=== PATIENT | male | born 1965 | race Caucasian/White ===

== ENCOUNTER 2017-07-12 08:01 | Day surgery (SDC) | payer OTHER ==
[2017-07-12] MEDS ORDERED: NS 1,000 ML IV ONE (08:09)
[2017-07-12] MEDS ORDERED: ATROPINE SULFATE 1 MG/10 ML SYR IVP ONE (08:09)
--- NOTE | 2017-07-12 08:26 | CPEKG ---
Heart Rate: 83 RR Interval: 723 P-R Interval: 196 QRSD Interval: 84 QT Interval: 364 QTC Interval: 428 P [place]: 63 QRS [place]: 27 T Wave [place]: 47 EKG Severity - OTHERWISE NORMAL ECG - EKG Impression: SINUS RHYTHM EKG Impression: LOW VOLTAGE IN FRONTAL LEADS Electronically Signed By: Puneet García 12-Jul-2017 15:09:16
--- NOTE | 2017-07-12 09:02 | GHP ---
[f rep st] HISTORY AND PHYSICAL DATE OF ADMISSION: 07/12/2017 CHIEF COMPLAINT: Palpitations and shortness of breath. HISTORY OF PRESENT ILLNESS: The patient is a 51-year-old male, who is known to our practice. He has significant past history of paroxysmal atrial fibrillation with rapid ventricular response. He has been noted to have, over the last 15 years, 4 episodes of atrial fibrillation requiring cardioversion . He reports last evening around 5, 5:30 p.m., he developed a sudden palpitation in his chest with a ssociated symptoms of shortness of breath, mild lightheadedness. Patient is a cardiac laborer laboratory nurse . He did an electrocardiogram on himself and ran a strip showing atrial fibrillation with rapid vent ricular response, heart rates varying between 130 and 160. He tried vagal maneuvers which, in the pa st, has helped convert him. Unfortunately, this did not work. Due to this, he did call our office w ith concerns regarding his new symptoms. He did try taking an extra dose of his diltiazem which he r eports helped control the rate down to the 120s to 130s at rest, but any time he exerts himself, he c an find his heart rate being up to 150. He denies any chest pain, lightheadedness, orthopnea, PND, e marito, near-syncope, or syncopal events. Does report palpitations but denies any chest pressure or pa in. Reports no recent fevers, chills, or night sweats. He does report he has been compliant with la s medications. Denies any history of bleeding issues and, besides yesterday, reports he has been in his normal state of health. He has cardiac risk factors of borderline hyperlipidemia and effects. PAST MEDICAL HISTORY: Paroxysmal atrial fibrillation, reporting over the last 15 years of having 4 c ardioversions, most recent was 2 years ago. He reports he is unable to break AFib without cardiovers ion. PAST SURGICAL HISTORY: Tonsillectomy. FAMILY HISTORY: Patient reports no significant family history of coronary artery disease at early on set but does report both father and sister have history of atrial arrhythmias in the past. SOCIAL HISTORY: Patient is a cardiac laborer laboratory nurse. He is , he has no children. He has 1-2 alcoholic beverages a week. Denies any tobacco use. Denies any illicit drug use. Reports caffeine on a daily basis. ALLERGIES: Patient has no known drug allergies. MEDICATIONS: At home include: 1. Cardizem CD 120 mg p.o. q. day. 2. Aspirin 325 mg p.o. q. day. 3. Vitamin D 5000 units p.o. daily. 4. Glucosamine daily, uncertain of dosage. 5. Flonase p.r.n. 2-3 times a month. REVIEW OF SYSTEMS: A 10-point review of systems on this patient all negative except as mentioned abo ve. PHYSICAL EXAMINATION: GENERAL APPEARANCE: Tall, well-groomed, male. He is alert and orie nted to person, place, time, and situation. Appears to be under no acute distress at this time. VIT AL SIGNS: Last evening were blood pressure of 130/80, heart rate was 136 beats per minute, respirati ons 18. HEENT: Head is normocephalic. Lips and tongue are pink and moist with no signs of cyanosis . Conjunctivae pink. NECK: Trachea is midline, +2 carotid pulses bilateral. No auscultated bruits , no jugular vein distention. RESPIRATORY: Lungs clear to auscultation, no rhonchi, rales or wheeze s. No accessory muscle use, no intercostal muscle retraction noted. CARDIAC: Irregular rate, tachy rhythm noted, S1, S2. No S3, S4, gallops, rubs, or murmur. ABDOMEN: Soft, nontender, bowel sounds x4 quadrants. No organomegaly. No palpable masses. SKIN: [place], warm, dry, no cyanosis, no clubbin g, no peripheral edema. VASCULAR: +2 radials bilateral, +2 posterior tibial pulses bilateral. +2 c arotids bilateral. LABORATORY STUDIES: No recent laboratory studies drawn. Will plan on getting a CBC, BMP, and TSH le jose upon his admission to the [facility] this morning. STUDIES: Patient is provided an EKG strip of lead II showing atrial fibrillation with rapid ventricu lar response. ASSESSMENT AND DIAGNOSIS: Paroxysmal atrial fibrillation: Patient reporting going into it yesterday evening at around 5, 5:30. Does report shortness of breath. Has been known to have atrial fibrilla tion in the past. Mild lightheadedness. Denies any chest pain or pressure. Patient has been attemp ting to take extra dose of his diltiazem with mild reduced rate but still increases with any exertion . Due to this, I do think the most advisable thing would be for him to proceed with urgent PENNY cardi oversion. We will plan to have this done at [facility] this morning to be performed by Dr. Weinberg. Patient has been n.p.o. since midnight. Anesthesia consult has been asked for. As f or long-term, patient has asked for a referral to see electrophysiology services due to the more incr eased frequency of atrial fibrillation which I do agree with. Patient does have a CHADS-VASc score o f zero, and he has been on aspirin therapy. Pending results, we will more than likely start him on E liquis for 30 days post cardioversion due to the increased risk of thrombotic event and then transiti on back over to aspirin. /[id number]/MODL
[2017-07-12 09:09] LABS: ANION GAP 13 mEq/L (8-16); CALCIUM 9.6 mg/dL (8.5-10.4); CARBON DIOXIDE 21 mEq/l (22-31); CHLORIDE 109 mEq/L (97-110); CREATININE 1.1 mg/dL (0.7-1.3); GLOMERULAR FILTRATION RATE > 60; GLUCOSE 98 mg/dL (70-100); POTASSIUM 4.3 mEq/L (3.5-5.2); SODIUM 143 mEq/L (134-144)
== END 2017-07-12 08:46 | disposition home or self-care (01) ==
LOC: FCATH 08:01
PROVIDERS: ATTEND Internal Medicine Cardiovascular Disease
DX: I48.0 Paroxysmal atrial fibrillation (principal); Z53.09 Procedure and treatment not carried out because of other contraindication

== ENCOUNTER → 2017-12-27 | Day surgery (SDC) | payer OTHER ==
[~2017-12-27] MED LIST: ATROPINE SULFATE 1 MG/10 ML SYR IVP ONE; BENZOCAINE UNIT DOSE SPRAY HURRICAINE MM ONE; MIDAZOLAM 2 MG/2 ML VIAL IVP ONE; NS 500 ML IV ONE; fentaNYL 100 MCG/2 ML INJ IVP ONE
--- NOTE | 2017-12-27 07:29 | CPEKG ---
Heart Rate: 74 RR Interval: 811 P-R Interval: 204 QRSD Interval: 92 QT Interval: 404 QTC Interval: 449 P [place]: 65 QRS [place]: 39 T Wave [place]: 37 EKG Severity - NORMAL ECG - EKG Impression: SINUS RHYTHM Electronically Signed By: Puneet García 27-Dec-2017 07:53:25
== END | disposition home or self-care (01) ==
LOC: FCATH 07:11
PROVIDERS: ATTEND Internal Medicine Cardiovascular Disease
DX: I48.91 Unspecified atrial fibrillation (principal); Z53.09 Procedure and treatment not carried out because of other contraindication

== ENCOUNTER → 2019-01-16 | Outpatient (CLI) | payer OTHER | LOC: FIMAGING 12:34 | PROVIDERS: ATTEND Physical Medicine & Rehabilitation | DX: S76.312A Strain of muscle, fascia and tendon of the posterior muscle group at thigh level, left thigh, initial encounter (principal) ==